=== PATIENT | female | born 1945 | race Caucasian/White ===

== ENCOUNTER 2021-04-04 22:27 | Emergency (ER) | payer MEDICARE, BC, SELFPAY ==
[2021-04-04 22:34] VITALS: BP 171/92; PULSE 70; RESP 18; TEMP 36.4; O2SAT 98; BMI 30.2
[2021-04-04 22:40] VITALS: PULSE 84
[2021-04-04] MEDS: silver nitrate applicator 3 EACH TOPICAL (23:59)
--- NOTE | 2021-04-05 00:10 | ED_ITS ---
HPI - Extremity Problem General: Chief complaint: Extremity Problem,Nontraumatic Stated complaint: BLEEDING ABOVE R ANKLE Time Seen by Provider: 04/04/21 22:28 History of Present Illness: HPI Narrative: 76-year-old female who was in her kitchen tonight, when she felt a sudden kohler of blood from her right ankle area. Tempted to control bleeding, but could not. She became a bit dizzy and called the ambulance. First responders placed a tourniquet on the thigh, and a pressure dressing over the wound which was a puncture type wound to the posterior medial ankle. Complaint: other Onset (ago): minute(s) Pain Consistency: constant Location: right and lower extremity Quality: other Radiation: none Relieving factors: elevation Exacerbating factors: nothing Associated symptoms: Deny chest pain, fever(s) or short of breath Review of Systems Const: Denies: fever(s) Card: Denies: chest pain Resp: Denies: dyspnea Physical Exam Const: COMMON NORMALS: no acute distress and patient oriented x3 Chest: COMMONS NORMALS: normal inspection of the chest Resp: COMMON NORMALS: normal respiratory effort and No use of accessory muscles Cardio: COMMON NORMALS: regular rate and regular rhythm RATE: regular rate RHYTHM: regular rhythm Neuro: COMMON NORMALS: patient oriented x3 Skin: NARRATIVE SKIN EXAM: Tiny ruptured varicosity to the posterior medial right ankle. Oozing blood on arrival. Course Vital Signs: Vital signs: Vital Signs Temperature 97.6 F 04/04/21 22:34 Pulse Rate 86 04/05/21 00:48 Respiratory Rate 20 H 04/05/21 00:48 Blood Pressure 164/88 04/05/21 00:48 Pulse Oximetry 96 04/05/21 00:48 MDM - Extremity (Nontraumatic) MDM Narrative: Medical decision making narrative: Pressure dressing replaced, and leg elevated. On reevaluation, bleeding has stopped completely. Area was cleaned with Betadine, cauterized with silver nitrate, and a Dermabond was placed over the site. Bleeding remained controlled. She sat in a chair with legs down to ensure that no bleeding occurred, which it did not. She feels well, and is ready to go home. Discharge Plan Discharge Patient Disposition: Home Clinical Impression: Ruptured varicose vein Condition: Stable Discharge Orders: Discharge ED (Routine); Ordered 04/05/21 Ordered By: Elmo Cheek Referrals: Daryn Pereira [Primary Care Provider] - 4-7 days (For wound check) Patient Instructions: Varicose Veins (ED) Activity Restrictions/Additional Instructions: You had a rupture of a varicose vein that caused the bleeding. This was stabil ized with cauterization, and protected with skin adhesive. Keep area dry for 24 hours, then you may wash with soap and running water. Do not scrub, do not soak in a tub, etc. Return for redness, warmth, pain, streaking, or any other concerning symptoms. see your doctor in a few days for wound check. Cover the area with a long sock to prevent abrading the area and reopening the rupture. 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
[2021-04-05 00:48] VITALS: BP 164/88; PULSE 86; RESP 20; O2SAT 96
== END 2021-04-05 00:55 | disposition home or self-care (01) ==
PROVIDERS: Emergency Provider Emergency Medicine; PCP Physician Assistant Medical
DX: I83.891 Varicose veins of right lower extremity with other complications (principal)
CPT/HCPCS: 99282

== ENCOUNTER 2021-09-22 12:51 | Outpatient (CLI) | payer MEDICARE, BC, SELFPAY ==
--- NOTE | 2021-09-22 13:05 | MM_ITS ---
WS: [id number] BILATERAL DIGITAL SCREENING MAMMOGRAPHY WITH CAD CLINICAL INFORMATION: SCREENING HISTORY: Screening mammogram. No current complaints. COMPARISON: July 02, 2020 TECHNIQUE: Bilateral CC and MLO views. FINDINGS: Scattered fibroglandular densities bilaterally. No suspicious focal mass, asymmetry, calcifications, or architectural distortion. No evidence of malignancy. MM/[id number] IMPRESSION: BI-RADS: 1-Negative FOLLOW UP: 1 Year Follow-up Recommend return to annual screening mammography.
== END 2021-09-22 12:52 | disposition home or self-care (01) ==
LOC: RADSHAW 12:59
PROVIDERS: PCP Registered Nurse; Visit Provider Physician Assistant Medical
DX: Z12.31 Encounter for screening mammogram for malignant neoplasm of breast (principal)
CPT/HCPCS: 77067

== ENCOUNTER 2021-10-27 14:27 | Outpatient (CLI) | payer MEDICARE, BC, SELFPAY ==
--- NOTE | 2021-10-27 15:00 | US_ITS ---
WS: [id number] TRANSABDOMINAL PELVIC AND TRANSVAGINAL PELVIC ULTRASOUND HISTORY: M54.50 - Low back pain, unspecified COMPARISON: None available. Uterus: 4.6 cm x 3.9 cm x 2.9 cm. Small atrophic anteverted uterus. Calcification in the central uter us with a large amount of shadowing and obscuration of detail within the myometrium. This is probably a calcified fibroid measuring 1.9 x 2.7 x 1.6 cm. No increased vascularity. Endometrium: 0.3 cm. Thin atrophic as expected. Neither ovary is identified. No adnexal masses. No free fluid. US/US pelvic with transvaginal IMPRESSION: 1. Atrophic uterus. 2. Neither ovary identified. 3. Calcification in the central uterus is most likely a calcified fibroid jerad uring 1.9 x 2.7 x 1.6 cm. Cannot see beyond the calcification due to shadowing.
== END 2021-10-27 14:28 | disposition home or self-care (01) ==
LOC: RAD 14:29
PROVIDERS: PCP Registered Nurse; Visit Provider Obstetrics & Gynecology
DX: M54.50 Low back pain, unspecified (principal); N85.8 Other specified noninflammatory disorders of uterus
CPT/HCPCS: 76830; 76856

== ENCOUNTER 2022-10-16 14:06 | Outpatient (CLI) | payer MEDICARE, BC, SELFPAY ==
--- NOTE | 2022-10-16 14:23 | MM_ITS ---
WS: [id number] BILATERAL 3D TOMOSYNTHESIS DIGITAL SCREENING MAMMOGRAPHY WITH CAD CLINICAL INFORMATION: SCREENING HISTORY: Screening mammogram. No current complaints. COMPARISON: 2021 TECHNIQUE: Bilateral CC and MLO views. FINDINGS: Scattered fibroglandular densities bilaterally. No suspicious focal mass, asymmetry, calcifications, or architectural distortion. No evidence of malignancy. MM/[id number] IMPRESSION: BI-RADS: 1-Negative FOLLOW UP: 1 Year Follow-up Recommend return to annual screening mammography.
== END 2022-10-16 14:07 | disposition home or self-care (01) ==
PROVIDERS: PCP Registered Nurse; Visit Provider Registered Nurse
DX: Z12.31 Encounter for screening mammogram for malignant neoplasm of breast (principal)
CPT/HCPCS: 77063; 77067

== ENCOUNTER → 2023-04-15 10:27 | Outpatient (BNVA) | payer MEDICARE, BC, SELFPAY | PROVIDERS: PCP Registered Nurse; Visit Provider Nurse Practitioner Family | DX: D37.01 Neoplasm of uncertain behavior of lip (principal); L82.0 Inflamed seborrheic keratosis; L29.8 Other pruritus; L57.8 Other skin changes due to chronic exposure to nonionizing radiation; L85.3 Xerosis cutis; D22.5 Melanocytic nevi of trunk; L82.1 Other seborrheic keratosis | CPT/HCPCS: 17110; 40490; 99213 ==